=== PATIENT | female | born 1970 | race Caucasian/White ===

== ENCOUNTER → 2017-02-03 | Day surgery (SDC) | payer OTHER ==
[~2017-02-03] VITALS: Ht 170.2 cm; Wt 120.0 kg
[~2017-02-03] MED LIST: ALPR.5 PO; CLON0.5T PO; GNP3TAB PO; IBUP-988 PO; LACTATED RINGER'S 1000 ML INJ 1,000 ML ONE; MEDR150I9 IM; PROPOFOL 200 MG/20 ML AMP IV ONE; SODIUM CHLORIDE 0.9% INJ 50 ML ONE; SUGAMMADEX SODIUM 200 MG/2 ML VIAL IV PUSH ONE; SYNT112T PO; ceFAZolin INJ 1,000 MG VIAL ONE; traMADol HCL 50 MG TAB ONE
[2017-02-03 08:45] VITALS: BP 132/82; PULSE 88; RESP 20; TEMP 98.3; O2SAT 97
[2017-02-03 09:36] LABS: BASOPHIL # 0.2 TH/MM3 (0-0.2); BASOPHIL % 2.5 % (0.0-2.0); EOSINOPHIL # 0.2 TH/MM3 (0-0.4); EOSINOPHIL % 1.9 % (0.0-4.0); LYMPH % 23.3 % (9.0-44.0); LYMPHOCYTE # 2.1 TH/MM3 (1.0-4.8); MEAN CELL VOLUME 83.4 FL (80.0-100.0); MEAN CORPUSCULAR HEMOGLOBIN 27.3 PG (27.0-34.0); MEAN CORPUSCULAR HGB CONC 32.7 % (32.0-36.0); MONO % 6.4 % (0.0-8.0); NEUT % 65.9 % (16.0-70.0); PLATELET COUNT 242 TH/MM3 (150-450); RED CELL DISTRIBUTION WIDTH 13.6 % (11.6-17.2); WHITE BLOOD COUNT 9.1 TH/MM3 (4.0-11.0)
[2017-02-03 09:42] LABS: HEMO FLAGS DIFF FINAL
[2017-02-03 09:46] LABS: BLOOD, URINE NEG (NEG); GLUCOSE,URINE NEG (NEG); KETONE, URINE NEG (NEG); NITRITE,URINE NEG (NEG)
[2017-02-03 09:48] LABS: METHOD OF COLLECTION CLEAN CATCH; URINE COLOR YELLOW (YELLW/STRAW)
[2017-02-03 09:50] LABS: COMMENT (UR) CULT NOT INDICATED; CULTURE IF INDICATED CULT NOT INDICATED; SQUAMOUS EPITHELIAL CELL URINE 0-5 /hpf (0-5); WBC, URINE 0-2 /hpf (0-5)
[2017-02-03 12:15] VITALS: TEMP 98.9
[2017-02-03 12:55] VITALS: BP 106/65; PULSE 81; RESP 14; O2SAT 98
--- NOTE | 2017-02-05 20:51 | MP ---
cc: RUBINA DE JESUS M.D., PAULA M. MD DATE OF SURGERY: 02/03/2017. PREOPERATIVE DIAGNOSIS: Menorrhagia POSTOPERATIVE DIAGNOSIS: Menorrhagia plus intrauterine synechiae (Asherman's syndrome). OPERATIVE PROCEDURE PERFORMED: Hysteroscopy, dilation and curettage, endometrial ablation using NovaSure device. SURGEON: Marianela Valdovinos M.D. ANESTHESIA: Dr. Berg / general endotracheal and [facility] [employer]. COMPLICATIONS: None. ESTIMATED BLOOD LOSS: 50 mL. SPECIMENS: Endometrial curettings, endocervical curettings. INDICATIONS FOR THE PROCEDURE: This 46-year-old had a NovaSure endometrial ablation for menorrhagia in 2013. She had amenorrhea for three years and then resumed with menorrhagia and requested a repeat procedure rather than a hysterectomy. She was aware that any intrauterine scarring may prevent getting a good result from the endometrial ablation. FINDINGS AT SURGERY: The patient was found to have a uterus that sounded to 10 cm total. The cervix sounded to 4 cm and the endometrial cavity was 3 cm wide on deployment of the endometrial ablation device. There were only a small amount of endometrial curettings and a moderate amount of endocervical curettings and there was evidence of synechiae especially in the right-sided fundus of the endometrial cavity. However, these were mostly broken up at the time of curettage and good coverage of the endometrial cavity was evident on hysteroscopy performed post procedure. DESCRIPTION OF THE PROCEDURE IN DETAIL: The patient was taken to the operating room and placed supine on the operating table. After general endotracheal anesthetic, she was prepped and draped in Yellofin stirrups. An open-sided speculum was placed in the vagina and the posterior lip of the cervix was grasped with a single-tooth tenaculum. The endocervical curettings were obtained followed by sounding of the cervix and the uterus using saline as the distension media. The hysteroscopy showed some evidence of synechiae but nothing that would impede the placement of the endometrial ablation device so it was deployed and ran a less than 2-minute cycle. Repeat hysteroscopy showed good ablation down to the internal os. The procedure being complete, the instruments were removed from the vagina and the patient was taken to the recovery room awake and breathing on her own. She tolerated the procedure well. Sponge, needle and instrument counts were correct. MD SATHYA Saleh/KATRIN /11:52 AM /8:47 PM
== END | disposition home or self-care (01) ==
LOC: PHSDC 08:29
PROVIDERS: ATTEND Obstetrics & Gynecology
DX: N92.0 Excessive and frequent menstruation with regular cycle (principal); N85.6 Intrauterine synechiae; N84.1 Polyp of cervix uteri
CPT/HCPCS: 00952; 36415; 58563; 81001; 85025; 88305; J0690; J3010; J7120